=== PATIENT | male | born 1985 | race Caucasian/White ===

== ENCOUNTER 2016-07-20 10:55 | Emergency (ER) | payer SELFPAY ==
[2016-07-20 11:18] VITALS: BP 128/78
--- NOTE | 2016-07-20 12:55 | ED ---
Pete David Anna, scribed for Curtis Morgan MD on 07/20/16 at 1125 . Syncope/Near Syncope - HPI Summary HPI Summary: Patient is a 30 y/o male BIBA to [facility] following sudden onset of a seizure that occurred this afternoon. The seizure was spontaneously resolved while the patient was in the ambulance. He remembers losing consciousness and waking up in the ambulance. The seizure was witnessed by his co-workers, who called the ambulance. The patient reports that the seizure was consistent with his typical seizures. He did not take his seizure medication last night and did not sleep as much as he normally did last night. He spoke to his neurologist after the seizure, and his neurologist recommended that he take an extra dose of his seizure medication. - History Of Current Complaint Chief Complaint: EDSeizure Hx Obtained From: Patient Onset/Duration: Sudden Onset, Lasting Minutes, Resolved - Spontaneously Context: Witnessed, Loss Of Consciousness Associated Head Trauma: No Alleviating Factor(s): Spontaneous Resolution PMH/Surg Hx/FS Hx/Imm Hx Cardiovascular History: Denies: Hx Myocardial Infarction Neurological History: Reports: Hx Seizures - Surgical History Surgery Procedure, Year, and Place: No prior surgeries. Infectious Disease History: Denies: Traveled Outside the [place] in Last 30 Days - Family History Known Family History: Negative: Hypertension, Seizure Disorder - Social History Occupation: Employed Full-time Alcohol Use: None Substance Use Type: Reports: None Hx Tobacco Use: Yes Smoking Status (MU): Light Every Day Tobacco Smoker Type: Cigarettes Review of Systems Constitutional: Negative Eyes: Negative ENT: Negative Cardiovascular: Negative Respiratory: Negative Positive: Syncope - Seizure Psychological: Normal All Other Systems Reviewed And Are Negative: Yes Physical Exam Triage Information Reviewed: Yes Vital Signs On Initial Exam: Initial Vitals Temp Pulse Resp BP Pulse Ox 98.5 F 74 18 128/78 99 07/20/16 11:13 07/20/16 11:13 07/20/16 11:13 07/20/16 11:13 07/20/16 11:13 Vital Signs Reviewed: Yes Appearance: Positive: Well-Appearing, No Pain Distress Skin: Positive: Warm, Skin Color Reflects Adequate Perfusion, Dry Head/Face: Positive: Normal Head/Face Inspection Eyes: Positive: Normal ENT: Positive: Normal ENT inspection Neck: Positive: Supple, Nontender Respiratory/Lung Sounds: Positive: Clear to Auscultation, Breath Sounds Present Cardiovascular: Positive: RRR Musculoskeletal: Positive: Normal Neurological: Positive: Normal Psychiatric: Positive: Affect/Mood Appropriate - Remi Coma Scale Coma Scale Total: 15 Diagnostics - Vital Signs Vital Signs Temp Pulse Resp BP Pulse Ox 07/20/16 11:13 98.5 F 74 18 128/78 99 - Laboratory Lab Statement: Any lab studies that have been ordered have been reviewed, and results considered in the medical decision making process. Course/Dx Course Of Treatment: Mr. 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 He forgot to take his PM meds last night and He did not get much sleep. He has standing instructions from his neurologist, Dr. Garsia in [facility] that he take an extra dose of his medicine (he can't rmember the name) when he has a seizure. He is requesting to be D/C'd without any W/U so he can get back to work. I agreed and encouraged him to take the extra dose and contact his neurologist or return for any concerns. - Diagnoses Provider Diagnoses: Breakthrough seizure Discharge - Discharge Plan Condition: Stable Disposition: HOME Patient Education Materials: Recurrent Seizures in Adults (ED) Referrals: [facility] [Outside] Additional Instructions: Take medication as directed by your neurologist. Follow up with your neurologist in 2 days. Return to the emergency department for new or worsening symptoms or if you would like more follow-up from today's seizure. The documentation as recorded by the Pete roper Anna accurately reflects the service I personally performed and the decisions made by me, Curtis Morgan MD.
== END 2016-07-20 11:57 | disposition home or self-care (01) ==
LOC: ED 10:55
DX: R56.9 Unspecified convulsions (principal); F17.210 Nicotine dependence, cigarettes, uncomplicated
CPT/HCPCS: 99282